=== PATIENT | male | born 1975 | race Caucasian/White ===

== ENCOUNTER 2020-10-17 13:43 | Emergency (ER) | payer SELFPAY ==
[~2020-10-17] VITALS: Wt 72.6 kg
== END 2020-10-17 14:30 | disposition home or self-care (01) ==
LOC: ED 13:43
DX: S61.411A Laceration without foreign body of right hand, initial encounter (principal); W26.8XXA Contact with other sharp object(s), not elsewhere classified, initial encounter; Y93.89 Activity, other specified; Y92.89 Other specified places as the place of occurrence of the external cause; Y99.8 Other external cause status

== ENCOUNTER 2023-10-17 01:04 | Emergency (ER) | payer SELFPAY ==
[~2023-10-17] VITALS: Ht 180.3 cm; Wt 88.0 kg
[2023-10-17] MEDS ORDERED: Dexamethasone Sodium Phospha 20 MG/5 ML VIAL IM ONE (01:25)
[2023-10-17] MEDS ORDERED: PREDNISONE20 M1 PO (01:25)
== END 2023-10-17 01:36 | disposition home or self-care (01) ==
LOC: ED 01:04
DX: L25.9 Unspecified contact dermatitis, unspecified cause (principal)

== ENCOUNTER 2023-10-30 13:34 | Emergency (ER) | payer SELFPAY ==
[~2023-10-30] VITALS: Ht 180.3 cm; Wt 86.2 kg
[~2023-10-30 13:34] MED LIST: PREDNISONE20 M1 PO
[2023-10-30] MEDS ORDERED: PREDNISONE20 M1 PO (14:39)
[2023-10-30] MEDS ORDERED: methylPREDNISolone sod succ 125 MG VIAL IM ONE (14:40)
== END 2023-10-30 15:03 | disposition home or self-care (01) ==
LOC: ED 13:34
DX: L30.9 Dermatitis, unspecified (principal); F41.9 Anxiety disorder, unspecified; F32.A Depression, unspecified; Z98.890 Other specified postprocedural states

== ENCOUNTER 2024-07-31 18:16 | Emergency (ER) | payer SELFPAY ==
[~2024-07-31] VITALS: Ht 177.8 cm; Wt 90.7 kg
[2024-07-31] MEDS ORDERED: Acetaminophen/Oxycodone 5 MG/325 MG TABLET PO ONE (20:00)
[2024-07-31] MEDS ORDERED: methylPREDNISolone sod succ 125 MG VIAL IM ONE (20:00)
== END 2024-07-31 20:12 | disposition home or self-care (01) ==
LOC: ED 18:16
DX: S46.911A Strain of unspecified muscle, fascia and tendon at shoulder and upper arm level, right arm, initial encounter (principal); Z79.899 Other long term (current) drug therapy; Z98.890 Other specified postprocedural states; X50.0XXA Overexertion from strenuous movement or load, initial encounter; Y93.89 Activity, other specified; Y92.89 Other specified places as the place of occurrence of the external cause; Y99.8 Other external cause status

== ENCOUNTER 2024-09-21 06:27 | Emergency (ER) | payer MEDICARE ==
[~2024-09-21] VITALS: Wt 95.3 kg
[2024-09-21] MEDS ORDERED: PREDNISONE20 M1 PO (06:40)
[2024-09-21] MEDS ORDERED: Water, Sterile 10 ML VIAL ONE (06:59)
== END 2024-09-21 06:37 | disposition home or self-care (01) ==
LOC: ED 06:27
DX: L23.7 Allergic contact dermatitis due to plants, except food (principal)

== ENCOUNTER 2024-10-19 02:55 | Emergency (ER) | payer MEDICARE ==
[~2024-10-19] VITALS: Ht 177.8 cm; Wt 93.0 kg
[2024-10-19] MEDS ORDERED: FAMOTIDINE 50 ML IV ONE (03:10)
[2024-10-19] MEDS ORDERED: diphenhydrAMINE hydrochloride 50 MG/ML VIAL IV ONE (03:10)
[2024-10-21] MEDS ORDERED: PREDNISONE20 M1 PO (17:37)
== END 2024-10-19 05:09 | disposition home or self-care (01) ==
LOC: ED 02:55
DX: T78.40XA Allergy, unspecified, initial encounter (principal); F41.9 Anxiety disorder, unspecified; F32.A Depression, unspecified; X58.XXXA Exposure to other specified factors, initial encounter